=== PATIENT | male | born 1960 | race Caucasian/White ===

== ENCOUNTER 2017-05-23 17:04 | Emergency (ER) | payer OTHER ==
[2017-05-23 17:05] VITALS: BP 170/100; PULSE 79; RESP 16; TEMP 98.7; O2SAT 99
[2017-05-23] MEDS ORDERED: SODIUM CHLORIDE 0.9% FLUSH 10 ML FLUSH IVF PRN (17:30)
[2017-05-23 17:56] VITALS: BP_SYST 138; BP_SYST 144; BP_DIAS 80; BP_DIAS 86; PULSE 90; RESP 18; O2SAT 96
[2017-05-23] MEDS ORDERED: XARE10TA PO (17:59)
[2017-05-23] MEDS ORDERED: CARD360C PO (17:59)
[2017-05-23] MEDS ORDERED: METF500T PO (17:59)
[2017-05-23 18:00] VITALS: BP 144/86; PULSE 95; RESP 18; O2SAT 97
[2017-05-23] MEDS ORDERED: LOSA25TA PO (18:00)
[2017-05-23] MEDS ORDERED: SIMV5TAB3 PO (18:00)
--- NOTE | 2017-05-23 18:00 | RADRPT ---
EXAM DATE/TIME: 05/23/2017 17:49 [place] COMPARISON: No previous studies available for comparison. INDICATIONS : Chest pain. Patient states his defibrilator fired today. MEDICAL HISTORY : None. SURGICAL HISTORY : Defibrilator. ENCOUNTER: Initial ACUITY: 1 day PAIN SCORE: 2/10 LOCATION: Bilateral chest FINDINGS: Pacemaker device is noted with control pack over the left chest. There is moderate asymmetric elevati on of right diaphragm of undetermined chronicity. The lungs appear grossly clear. No significant effu idalia suspected. Heart size and mediastinal contours appears satisfactory. Pulmonary vascularity is no rmal. CONCLUSION: Elevated right hemidiaphragm of undetermined chronicity. Piero Randolph MD on May 23, 2017 at 17:56 Board Certified Radiologist. This report was verified electronically.
--- NOTE | 2017-05-23 18:30 | PD ---
HPI Chief Complaint: Dietetic Aide Problem Time Seen by Provider: 17:28 Travel History International Travel<30 days: No Contact w/Intl Traveler<30days: No Traveled to known affect area: No History of Present Illness HPI 56-year-old male with a presents to the ED for evaluation of possible defibrillator going off. 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 Per patient he has in the shower this morning in felt that his defibrillator went off. per patient he has never had this go off before. Patient's from [place] in his ammunition assembly i laborer recommended that he gets evaluated to make sure everything's okay. He denies any history of ACS or stents or bypass beer per patient he his here on business. He denies any other symptom at this time. Per patient he feels fine. He does take Xarelto as a blood thinner. He denies any headache. No blurred vision or double vision. Per patient his contacted the ammunition assembly i laborer who recommended that he has checked out. Currently he has no pain again. No shortness of breath. No other medical issues at this time. Pain during the event was 8/10. PFSH Past Medical History Atrial Fibrillation: Yes Diabetes: Yes Patient Takes Glucophage: Yes Triglycerides - High: Yes Past Surgical History AICD: Yes (medtronic) Social History Alcohol Use: Yes (on occasion) Tobacco Use: No Substance Use: No Allergies-Medications (Allergen,Severity, Reaction): Coded Allergies: meperidine (Verified Allergy, Unknown, 05/23/17) Reported Meds & Prescriptions Reported Meds & Active Scripts Active Reported Losartan (Losartan Potassium) 25 Mg Tab 12.5 Mg PO DAILY Simvastatin 5 Mg Tab 5 Mg PO DAILY Xarelto (Rivaroxaban) 10 Mg Tab 10 Mg PO DAILY Cardizem CD 24 HR (Diltiazem CD 24 HR) 360 Mg Caper 360 Mg PO DAILY Metformin (Metformin HCl) 500 Mg Tab 500 Mg PO DAILY With a meal Review of Systems Except as stated in HPI: all other systems reviewed are Neg Physical Exam Narrative GENERAL: SKIN: Warm and dry. HEAD: Atraumatic. Normocephalic. EYES: Pupils equal and round. No scleral icterus. No injection or drainage. ENT: No nasal bleeding or discharge. Mucous membranes pink and moist. Tongue midline. No uvula deviation. NECK: Trachea midline. No JVD. CARDIOVASCULAR: Regular rate and rhythm. No murmurs, S3, S4. RESPIRATORY: No accessory muscle use. Clear to auscultation. Breath sounds equal bilaterally. GASTROINTESTINAL: Abdomen soft, non-tender, nondistended. Hepatic and splenic margins not palpable. MUSCULOSKELETAL: Extremities without clubbing, cyanosis, or edema. No obvious deformities. full ROM of the upper and lower extremities bilaterally. 2+ pulses. NEUROLOGICAL: Awake and alert. No obvious cranial nerve deficits. Motor grossly within normal limits. Five out of 5 muscle strength in the arms and legs. Normal speech. PSYCHIATRIC: Appropriate mood and affect; insight and judgment normal. Data Data Last Documented VS Vital Signs Date Time Temp Pulse Resp B/P (MAP) Pulse Ox O2 Delivery O2 Flow Rate FiO2 05/23/17 18:05 89 18 98 Room Air 05/23/17 18:00 144/86 (105) 05/23/17 17:05 98.7 Orders Orders Electrocardiogram (05/23/17 ) Electrocardiogram (05/23/17 17:28) Basic Metabolic Panel (Bmp) (05/23/17 17:28) Ckmb (Isoenzyme) Profile (05/23/17 17:28) Complete Blood Count With Diff (05/23/17 17:28) Magnesium (Mg) (05/23/17 17:28) Prothrombin Time / Inr (Pt) (05/23/17 17:28) Act Partial Throm Time (Ptt) (05/23/17 17:28) Troponin I (05/23/17 17:28) Chest, Single Ap (05/23/17 17:28) Ecg Monitoring (05/23/17 17:28) Bilateral Bp Monitoring (05/23/17 17:28) Iv Access Insert/Monitor (05/23/17 17:28) Oximetry (05/23/17 17:28) Sodium Chloride 0.9% Flush (Ns Flush) (05/23/17 17:30) CKMB (05/23/17 17:55) CKMB% (05/23/17 17:55) Sodium Chlorid 0.9% 500 Ml Inj (Ns 500 M (05/23/17 19:45) Ed Discharge Order (05/23/17 19:42) Labs Laboratory Tests Test 05/23/17 17:55 White Blood Count 12.3 TH/MM3 Red Blood Count 4.92 MIL/MM3 Hemoglobin 16.5 GM/DL Hematocrit 46.1 % Mean Corpuscular Volume 93.7 FL Mean Corpuscular Hemoglobin 33.6 PG Mean Corpuscular Hemoglobin Concent 35.8 % Red Cell Distribution Width 12.8 % Platelet Count 208 TH/MM3 Mean Platelet Volume 9.1 FL Neutrophils (%) (Auto) 62.3 % Lymphocytes (%) (Auto) 26.3 % Monocytes (%) (Auto) 10.2 % Eosinophils (%) (Auto) 0.6 % Basophils (%) (Auto) 0.6 % Neutrophils # (Auto) 7.7 TH/MM3 Lymphocytes # (Auto) 3.3 TH/MM3 Monocytes # (Auto) 1.3 TH/MM3 Eosinophils # (Auto) 0.1 TH/MM3 Basophils # (Auto) 0.1 TH/MM3 CBC Comment DIFF FINAL Differential Comment Prothrombin Time 11.7 SEC Prothromb Time International Ratio 1.2 RATIO Activated Partial Thromboplast Time 29.7 SEC Blood Urea Nitrogen 18 MG/DL Creatinine 1.10 MG/DL Random Glucose 127 MG/DL Calcium Level 9.3 MG/DL Magnesium Level 1.9 MG/DL Sodium Level 136 MEQ/L Potassium Level 3.6 MEQ/L Chloride Level 102 MEQ/L Carbon Dioxide Level 25.1 MEQ/L Anion Gap 9 MEQ/L Estimat Glomerular Filtration Rate 69 ML/MIN Total Creatine Kinase 959 U/L Creatine Kinase MB 6.1 NG/ML Creatine Kinase MB % 0.6 % Troponin I 0.04 NG/ML MDM Medical Decision Making Medical Screen Exam Complete: Yes Emergency Medical Condition: Yes Medical Record Reviewed: Yes Interpretation(s) CBC & BMP Diagram 05/23/17 17:55 Calcium Level 9.3, Magnesium Level 1.9 Last Impressions Chest X-Ray 05/23/17 0058 Signed Impressions: Service Date/Time: Tuesday, May 23, 2017 17:49 - CONCLUSION: Elevated right hemidiaphragm of undetermined chronicity. Piero Randolhp MD troponin negative CK slightly elevated EKG shows sinus rhythm with no sign of acute ischemia or arrythmia read by me and attending Differential Diagnosis Chest pain versus medical editor side effect versus proper use of medical editor versus normal exam versus ACS Narrative Course 56-year-old male presents to the ED for evaluation of defibrillator going off. Patient with properly examinable spun to have signs of symptoms consistent with appears to be defibrillator going off. No sign of acute disease. Patient currently asymptomatic. Patient has this device secondary to her atrial fibrillation. We will have the defibrillator interrogated. labs and imaging were ordered. Per medtronich rep patient was on a fib in RVR in the 190s and went off. No other incidents noted or other arryhtmias. labs did show slight elevated CK. My attending recommend fluids. This has given to the patient. Patient agrees with plan. Told to follow-up with PCP or ammunition assembly i laborer when he gets home. See ED worsening symptoms. Follow-up with PCP. Diagnosis Primary Impression: Defibrillator discharge Patient Instructions: General Instructions Additional Instructions: Drink plenty of fluids. Follow-up with PCP. See ED worsening symptoms. Med/Other Pt SpecificInfo: No Change to Meds Disposition: 01 DISCHARGE HOME Condition: Stable Pablito Collier May 23, 2017 18:30
[2017-05-23 18:57] LABS: AUTOMATED NEUTROPHIL # 7.7 TH/MM3 (1.8-7.7); BASOPHIL # 0.1 TH/MM3 (0-0.2); BASOPHIL % 0.6 % (0.0-2.0); EOSINOPHIL # 0.1 TH/MM3 (0-0.4); EOSINOPHIL % 0.6 % (0.0-4.0); HEMATOCRIT 46.1 % (39.0-51.0); HEMOGLOBIN 16.5 GM/DL (13.0-17.0); LYMPH % 26.3 % (9.0-44.0); LYMPHOCYTE # 3.3 TH/MM3 (1.0-4.8); MEAN CELL VOLUME 93.7 FL (80.0-100.0); MEAN CORPUSCULAR HEMOGLOBIN 33.6 PG (27.0-34.0); MEAN CORPUSCULAR HGB CONC 35.8 % (32.0-36.0); MEAN PLATELET VOLUME 9.1 FL (7.0-11.0); MONO % 10.2 % (0.0-8.0); MONOCYTE # 1.3 TH/MM3 (0-0.9); NEUT % 62.3 % (16.0-70.0); PLATELET COUNT 208 TH/MM3 (150-450); RED BLOOD COUNT 4.92 MIL/MM3 (4.50-5.90); RED CELL DISTRIBUTION WIDTH 12.8 % (11.6-17.2); WHITE BLOOD COUNT 12.3 TH/MM3 (4.0-11.0)
[2017-05-23 18:59] LABS: INTERNATIONAL NORMALIZED RATIO 1.2 RATIO; PROTHROMBIN TIME - PATIENT 11.7 SEC (9.8-11.6)
[2017-05-23 19:08] LABS: BICARBONATE 25.1 MEQ/L (21.0-32.0); CALCIUM 9.3 MG/DL (8.5-10.1); CREATININE 1.1 MG/DL (0.60-1.30); MAGNESIUM 1.9 MG/DL (1.5-2.5)
[2017-05-23 19:12] LABS: TROPONIN I 0.04 NG/ML (0.02-0.05)
[2017-05-23] MEDS ORDERED: SODIUM CHLORID 0.9% 500 ML INJ 500 ML IV ONE (19:45)
--- NOTE | 2017-05-23 19:46 | PD ---
Data Data Last Documented VS Vital Signs Date Time Temp Pulse Resp B/P (MAP) Pulse Ox O2 Delivery O2 Flow Rate FiO2 05/23/17 18:05 89 18 98 Room Air 05/23/17 18:00 144/86 (105) 05/23/17 17:05 98.7 Orders Orders Electrocardiogram (05/23/17 ) Electrocardiogram (05/23/17 17:28) Basic Metabolic Panel (Bmp) (05/23/17 17:28) Ckmb (Isoenzyme) Profile (05/23/17 17:28) Complete Blood Count With Diff (05/23/17 17:28) Magnesium (Mg) (05/23/17 17:28) Prothrombin Time / Inr (Pt) (05/23/17 17:28) Act Partial Throm Time (Ptt) (05/23/17 17:28) Troponin I (05/23/17 17:28) Chest, Single Ap (05/23/17 17:28) Ecg Monitoring (05/23/17 17:28) Bilateral Bp Monitoring (05/23/17 17:28) Iv Access Insert/Monitor (05/23/17 17:28) Oximetry (05/23/17 17:28) Sodium Chloride 0.9% Flush (Ns Flush) (05/23/17 17:30) CKMB (05/23/17 17:55) CKMB% (05/23/17 17:55) Ns (Bolus) Inj (05/23/17 19:45) Labs Laboratory Tests Test 05/23/17 17:55 White Blood Count 12.3 TH/MM3 Red Blood Count 4.92 MIL/MM3 Hemoglobin 16.5 GM/DL Hematocrit 46.1 % Mean Corpuscular Volume 93.7 FL Mean Corpuscular Hemoglobin 33.6 PG Mean Corpuscular Hemoglobin Concent 35.8 % Red Cell Distribution Width 12.8 % Platelet Count 208 TH/MM3 Mean Platelet Volume 9.1 FL Neutrophils (%) (Auto) 62.3 % Lymphocytes (%) (Auto) 26.3 % Monocytes (%) (Auto) 10.2 % Eosinophils (%) (Auto) 0.6 % Basophils (%) (Auto) 0.6 % Neutrophils # (Auto) 7.7 TH/MM3 Lymphocytes # (Auto) 3.3 TH/MM3 Monocytes # (Auto) 1.3 TH/MM3 Eosinophils # (Auto) 0.1 TH/MM3 Basophils # (Auto) 0.1 TH/MM3 CBC Comment DIFF FINAL Differential Comment Prothrombin Time 11.7 SEC Prothromb Time International Ratio 1.2 RATIO Activated Partial Thromboplast Time 29.7 SEC Blood Urea Nitrogen 18 MG/DL Creatinine 1.10 MG/DL Random Glucose 127 MG/DL Calcium Level 9.3 MG/DL Magnesium Level 1.9 MG/DL Sodium Level 136 MEQ/L Potassium Level 3.6 MEQ/L Chloride Level 102 MEQ/L Carbon Dioxide Level 25.1 MEQ/L Anion Gap 9 MEQ/L Estimat Glomerular Filtration Rate 69 ML/MIN Total Creatine Kinase 959 U/L Creatine Kinase MB 6.1 NG/ML Creatine Kinase MB % 0.6 % Troponin I 0.04 NG/ML [facility] Medical Record Reviewed: Yes Supervised Visit with ABARHAM: Yes Narrative Course I, Dr. Mccallum, have reviewed the advance practice practitioner's documentation and am in agreement, met with the patient face to face, made the diagnosis, and the medical decision making was done by me. The patient was initially evaluated by Bernard. Please see their complete history and physical. *My assessment and Findings: The patient presents with history of atrial fibrillation with pacemaker/AICD in place, currently anticoagulated on Xarelto in on a rate controlling medicine of [facility] who presents with a history of having his defibrillator fire earlier today. The patient reports that he is visiting from out of town. He called his manager game in his manager game told him to go the emergency department for evaluation of treatment. The patient otherwise has felt well since this happened. He denies having any chest pain, chest pressure, or shortness of breath. During the course of the patient's emergency department visit, the patients history, examination, and differential diagnosis were reviewed with the patient. The patient was placed on a cardiac cath rn with oximetry and frequent blood pressure monitoring. The patient had IV access obtained and blood work sent for analysis. The patient had an EKG done on arrival that shows a sinus rhythm heart rate of 78 with a moderate intraventricular conduction delay in a QRS duration of 115 ms, QTC [address] segment elevation. T waves are inverted in V1.. The patient's laboratory studies were reviewed and remarkable for a white count of 12.3, hemoglobin 16.5, platelets 208 with monocytes 10.2, CMP as remarkable for glucose of 127, CPK 959 MB percent of 0.6, likely related to the shock, normal saline 500 mL bolus will be administered 1, troponin I 0.04. PT 11.7, PTT 29.7. Radiology studies were reviewed and remarkable for the chest x-ray that shows elevated right hemidiaphragm of undetermined chronicity, no other acute abnormality. The patient's pacemaker was not interrogated in the patient had an episode of A. fib with RVR at the time that his defibrillator went off. No other cardiac abnormality or arrhythmia with noted. The patient has encouraged to increase his hydration due to his elevated CPK. He denies any prior history of congestive heart failure. At my just The patient is resting comfortably and feels better, is alert and in no distress. The patients results and examination findings were discussed with the patient. The repeat examination is unremarkable and benign. The history, exam, diagnostic testing, and current condition do not suggest any significant pathology to warrant further testing, continued ED treatment, admission, or surgical evaluation at this point. The vital signs have been stable. The patient does not have uncontrollable pain, intractable vomiting, or other significant symptoms. The patient's condition is stable and appropriate for discharge. The patient will pursue further outpatient evaluation with a primary care physician or other designated or consulting physician as indicated in the discharge instructions. The patient expressed understanding and was agreeable with this plan. Diagnosis Primary Impression: Defibrillator discharge Michelle Mccallum MD May 23, 2017 19:46
--- NOTE | 2017-05-24 10:11 | EKG ---
Date Performed: 05/23/2017 Time Performed: 17:22:35 PTAGE: 56 years EKG: Sinus rhythm MODERATE INTRAVENTRICULAR CONDUCTION DELAY BORDERLINE ECG NO PREVIOUS TRACING DOCTOR: Jatin Louis Interpretating Date/Time 05/24/2017 10:11:00
== END 2017-05-23 20:14 | disposition home or self-care (01) ==
LOC: NEPE 17:04
DX: T82.198A Other mechanical complication of other cardiac electronic device, initial encounter (principal); I48.91 Unspecified atrial fibrillation; E11.9 Type 2 diabetes mellitus without complications; Z79.01 Long term (current) use of anticoagulants; Z79.84 Long term (current) use of oral hypoglycemic drugs
CPT/HCPCS: 71045; 80048; 82550; 82552; 83735; 84484; 85025; 85610; 85730; 93005; 99285; J7040